=== PATIENT | male | born 1990 | race African-American/Black ===

== ENCOUNTER 2017-04-19 19:37 | Emergency (ER) | payer SELFPAY ==
[2017-04-19] MEDS ORDERED: ACETAMINOPHEN 325 MG TABLET PO ONE (21:15)
[2017-04-19] MEDS ORDERED: PREDNISONE 20 MG TABLET PO ONE (23:15)
[2017-04-19] MEDS ORDERED: BENZONATATE 100 MG CAPSULE PO ONE (23:15)
--- NOTE | 2017-04-19 23:19 | ER Document Report ---
HPI - HPI Patient complains to provider of: cough, congestion Pain Level: 5 Context: Patient is a 27 year old male that comes to the ED for chief complaint of two days of congestion, cough, pain in his chest with cough. No fever or chills. No nausea or vomiting. Patient denies any shortness of breath. Former smoker. No daily medications or medical history reported. Past Medical History - General Information source: Patient - Social History Smoking Status: Former Smoker Frequency of alcohol use: None Drug Abuse: None Lives with: Family Family History: Reviewed & Not Pertinent - Medical History Medical History: Negative Surgical Hx: Negative - Immunizations Immunizations up to date: Yes Hx Diphtheria, Pertussis, Tetanus Vaccination: Yes Vertical Provider Document - CONSTITUTIONAL General Appearance: WD/WN, No Apparent Distress - INFECTION CONTROL TRAVEL OUTSIDE OF THE [place] IN LAST 30 DAYS: No - HEENT HEENT: Atraumatic, Normocephalic. negative: Normal ENT Exam - Congested nasal passages, mildly swollen turbinates, nontender sinuses, minimal erythema of the pharynx, normal oral and ENT exam otherwise - NECK Neck: Normal Inspection - RESPIRATORY Respiratory: Breath Sounds Normal, No Respiratory Distress. negative: Rales, Rhonchi, Wheezing O2 Sat by Pulse Oximetry: 96 - CARDIOVASCULAR Cardiovascular: Regular Rate, Regular Rhythm - GI/ABDOMEN Gastrointestinal: Abdomen Soft, Abdomen Non-Tender - MUSCULOSKELETAL/EXTREMETIES Musculoskeletal/Extremeties: MAEW, FROM, Non-Tender - NEURO Level of Consciousness: Awake, Alert, Appropriate - DERM Integumentary: Warm, Dry, No Rash Course - Re-evaluation Re-evalutation: Patient alert, well-appearing, no hypoxia, clear lung auscultation. No signs of distress. Occasionally will have a nonproductive cough, he does have some sinus congestion. No fever. Low suspicion of pneumonia, very low suspicion of acute emergent process such as pneumothorax. Presentation consistent with viral upper respiratory infection. Discussed this with patient. Patient will be treated for this, discussed follow-up, return precautions in detail. Patient and mother state understanding and agreement. - Vital Signs Vital signs: Temp Pulse Resp BP Pulse Ox 98.5 F 81 20 156/78 H 96 04/19/17 19:46 04/19/17 19:46 04/19/17 19:46 04/19/17 19:46 04/19/17 19:46 Discharge - Discharge Clinical Impression: Cough Upper respiratory infection Qualifiers: URI type: unspecified URI Qualified Code(s): J06.9 - Acute upper respiratory infection, unspecified Condition: Stable Disposition: HOME, SELF-CARE Additional Instructions: Symptoms and physical exam and are most consistent with viral upper respiratory infection. Probable early bronchitis. Take prednisone as prescribed, take Tessalon for cough, drink plenty of fluids, you can use [id number]-[id number] medications such as decongestants and antihistamines if needed. Follow-up with primary care. Return for any concerning symptoms including difficulty breathing , fever of 100.4 greater, or any other concerning symptoms. Prescriptions: Benzonatate [Tessalon Perle 100 mg Capsule] 100 mg PO Q8HP PRN #20 cap PRN Reason: Prednisone [Deltasone 10 mg Tablet] 10 mg PO ASDIR PRN #21 tablet PRN Reason: Forms: Parent Work Note, Elevated Blood Pressure
[2017-04-19 23:33] VITALS: BP 136/87
--- NOTE | 2017-04-19 23:33 | EKG REPORT ---
SEVERITY:- OTHERWISE NORMAL ECG - SINUS RHYTHM BORDERLINE RIGHT AXIS DEVIATION : Confirmed by: Ángel Farah 19-Apr-2017 23:32:40
== END 2017-04-19 23:26 | disposition home or self-care (01) ==
LOC: ER 19:37
DX: J06.9 Acute upper respiratory infection, unspecified (principal)
CPT/HCPCS: 93005; 99283; 93010; J7512

== ENCOUNTER 2018-04-11 15:29 | Emergency (ER) | payer MEDICAID, OTHER ==
[2018-04-11 16:03] VITALS: BP 110/78
--- NOTE | 2018-04-11 16:41 | RADIOLOGY REPORT (SQ) ---
EXAM DESCRIPTION: FINGER LEFT COMPLETED DATE/TIME: 04/11/2018 4:33 pm REASON FOR STUDY: left second digit pain tip of the index finger numb, no history of trauma COMPARISON: None. NUMBER OF VIEWS: Three views. TECHNIQUE: AP, lateral, and oblique images acquired of the left second finger. LIMITATIONS: None. FINDINGS: MINERALIZATION: Normal. BONES: No acute fracture or dislocation. No worrisome bone lesions. SOFT TISSUES: No soft tissue swelling. No foreign body. OTHER: No other significant finding. IMPRESSION: NO PLAIN FILM FINDINGS TO EXPLAIN HISTORY OF PAIN OR NUMBNESS, LEFT 2ND FINGER. TECHNICAL DOCUMENTATION: JOB ID: [id number] [employer]- All Rights Reserved Reading location - IP/workstation name: [email or web address]
--- NOTE | 2018-04-11 17:05 | ER Document Report ---
HPI - HPI Time Seen by Provider: 04/11/18 15:49 Pain Level: 2 Notes: Patient is an otherwise healthy 28-year-old male who presents with chief complaint of left index finger numbness and tingling. He reports that this is intermittent and has been going on for the last 2 days. He denies any injury to the area. 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 He denies any pain. - CONSTITUTIONAL Constitutional: DENIES: Fever, Chills - MUSCULOSKELETAL Musculoskeletal: REPORTS: Extremity pain - left thumb Past Medical History - General Information source: Patient - Social History Smoking Status: Current Every Day Smoker Chew tobacco use (# tins/day): No Frequency of alcohol use: None Drug Abuse: None Family History: Reviewed & Not Pertinent Patient has suicidal ideation: No Patient has homicidal ideation: No - Medical History Medical History: Negative Renal/ Medical History: Denies: Hx Peritoneal Dialysis Past Surgical History: Reports: Hx Orthopedic Surgery - rt index finger - Immunizations Immunizations up to date: Yes Hx Diphtheria, Pertussis, Tetanus Vaccination: Yes Vertical Provider Document - CONSTITUTIONAL Notes: PHYSICAL EXAMINATION: GENERAL: Well-appearing, well-nourished and in no acute distress. HEAD: Atraumatic, normocephalic. EYES: Pupils equal round extraocular movements intact, conjunctiva are normal. ENT: Nares patent NECK: Normal range of motion LUNGS: No respiratory distress Musculoskeletal: Normal range of motion to left hand and all digits. Cap refill less than 3 seconds to all digits, normal motor. Altered sensation to left index finger, no deformity noted. NEUROLOGICAL: Normal speech, normal gait. PSYCH: Normal mood, normal affect. SKIN: Warm, Dry, normal turgor, no rashes or lesions noted. - INFECTION CONTROL TRAVEL OUTSIDE OF THE [place] IN LAST 30 DAYS: No Course - Re-evaluation Re-evalutation: X-rays negative for any acute fracture or dislocation. Patient instructed to try resting his extremity and take NSAIDs. - Vital Signs Vital signs: Temp Pulse Resp BP Pulse Ox 98.9 F 71 16 148/66 H 96 04/11/18 15:35 04/11/18 15:35 04/11/18 15:35 04/11/18 15:35 04/11/18 15:35 Discharge - Discharge Clinical Impression: Finger numbness Condition: Stable Disposition: HOME, SELF-CARE Additional Instructions: Your x-ray today was normal. Try to rest your finger over the next several days this may help the sensation return to normal. If not improving follow-up with primary care in the next 5-7 days.
== END 2018-04-11 17:31 | disposition home or self-care (01) ==
LOC: ER 15:29
DX: R20.0 Anesthesia of skin (principal); F17.200 Nicotine dependence, unspecified, uncomplicated
CPT/HCPCS: 99283

== ENCOUNTER 2018-09-02 16:51 | Emergency (ER) | payer SELFPAY ==
[2018-09-02] MEDS ORDERED: FLUTICASONE NASAL SPRAY 50 MCG/SPRY 120 SPRAY/16 GM NASL ONE (18:02)
[2018-09-02] MEDS ORDERED: OXYMETAZOLINE HCL 0.05% NASAL SPRAY 15 ML BOTTLE NASL ONE (18:02)
--- NOTE | 2018-09-02 18:07 | ER Document Report ---
HPI - HPI Patient complains to provider of: can't hear out of both ears Time Seen by Provider: 09/02/18 17:45 Pain Level: 4 Context: Healthy 28-year-old male presents emergency department with chief complaint of "cannot hear out of both ears". He said the symptoms have been going on for couple weeks and have not improved. He is tried Mucinex, Sudafed, TheraFlu, and increased his fluids with no resolution. He said that he has to "turn the TV up to 35" and still can hardly hear. He is also complaining of postnasal drip and a stuffy nose. He also has a cough that is not productive. He denies any fevers or chills, dizziness or lightheadedness, ear pain, sinus pressure, sore throat, neck tenderness, shortness of breath or wheezing, chest pain, nausea/vomiting/diarrhea/constipation, abdominal pain, or any other symptoms. Past Medical History - Social History Smoking Status: Current Every Day Smoker Family History: Reviewed & Not Pertinent Renal/ Medical History: Denies: Hx Peritoneal Dialysis Past Surgical History: Reports: Hx Orthopedic Surgery - rt index finger - Immunizations Immunizations up to date: Yes Hx Diphtheria, Pertussis, Tetanus Vaccination: Yes Vertical Provider Document - CONSTITUTIONAL Notes: PHYSICAL EXAMINATION: Reviewed vital signs and charting by RN GENERAL: Alert, interacts well. No acute distress. HEAD: Normocephalic, atraumatic. EYES: Pupils equal and round. Extraocular movements intact. ENT: Oral mucosa moist, tongue midline. No tonsillar erythema or exudate, uvula midline. Bilateral TMs intact, landmarks well visualized, no erythema or bulging, small amount of fluid noted behind the right TM NECK: Full range of motion. Trachea midline. LUNGS: Clear to auscultation bilaterally, no wheezes, rales, or rhonchi. No respiratory distress. HEART: Regular rate and rhythm. No murmur ABDOMEN: soft, non-tender. No distention. Bowel sounds present EXTREMITIES: Moves all 4 extremities spontaneously. No edema, No cyanosis. PSYCH: Normal affect, normal mood. SKIN: Warm, dry, normal turgor. No rashes or lesions noted. - INFECTION CONTROL TRAVEL OUTSIDE OF THE [place] IN LAST 30 DAYS: No Course - Re-evaluation Re-evalutation: 09/02/18 18:06 Patient's symptoms most consistent with a viral syndrome. He is afebrile, lungs are clear, TMs do not show evidence of otitis media, throat is not red swollen or painful. There is no reason for any further testing or imaging at this time. I gave patient a Flonase and Afrin order here in the emergency department. I gave patient instructions and anticipatory guidance. Patient has received strict return precautions and is stable for discharge. Vital signs within no rmal limits. - Vital Signs Vital signs: Temp Pulse Resp BP Pulse Ox 98.2 F 94 18 152/77 H 96 09/02/18 17:09 09/02/18 17:09 09/02/18 17:09 09/02/18 17:09 09/02/18 17:09 Discharge - Discharge Clinical Impression: Head congestion Condition: Good Disposition: HOME, SELF-CARE Additional Instructions: Your symptoms are likely due to a viral infection. The only treatment at this time is supportive care including drinking plenty of fluids, Tylenol 1000 mg every 6 hours and/or ibuprofen 600 mg every 6 hours, as well as Flonase and Afrin which she will be sent home with. Your symptoms will likely last for another 7-10 days. Please return to the emergency department immediately if you become confused, have persistent vomiting, pass out, have severe headache, or have any other symptoms that are worrisome to you. Follow-up with your primary care doctor in the next several days.
[2018-09-02 18:32] VITALS: BP 150/71
== END 2018-09-02 18:31 | disposition home or self-care (01) ==
LOC: ER 16:51
DX: R68.89 Other general symptoms and signs (principal); H91.93 Unspecified hearing loss, bilateral; R05 Cough; F17.200 Nicotine dependence, unspecified, uncomplicated
CPT/HCPCS: 99282; J3490

== ENCOUNTER 2018-09-04 17:10 | Emergency (ER) | payer SELFPAY ==
[2018-09-04 17:40] VITALS: BP 150/76
--- NOTE | 2018-09-04 18:18 | ER Document Report ---
HPI - HPI Patient complains to provider of: URI symptoms Time Seen by Provider: 09/04/18 17:43 Pain Level: 5 Context: Patient is an otherwise healthy 28-year-old male presents to the emergency department for generalized cough, congestion, "popping sensation" in bilateral ears, body aches, subjective fever for the last 7 days. Patient's denying any respiratory distress, chest pain, nausea, vomiting, diarrhea. Patient was to this facility 2 days ago for same. Was sent home on Afrin and Flonase. States he has been using them as prescribed. Patient states he now feels some swelling in front of his right ear which is what prompted his visit to the emergency room. - CONSTITUTIONAL Constitutional: DENIES: Fever, Chills - EENT EENT: REPORTS: Ear Pain. DENIES: Sore Throat, Eye problems - NEURO Neurology: DENIES: Weakness, Vision blurred, Dizzinesss / Vertigo - CARDIOVASCULAR Cardiovascular: DENIES: Chest pain - RESPIRATORY Respiratory: REPORTS: Coughing. DENIES: Trouble Breathing - GASTROINTESTINAL Gastrointestinal: DENIES: Abdominal Pain, Black / Bloody Stools - URINARY Urinary: DENIES: Dysuria, Urgency, Frequency - MUSCULOSKELETAL Musculoskeletal: DENIES: Extremity pain Past Medical History - General Information source: Patient - Social History Smoking Status: Current Every Day Smoker Chew tobacco use (# tins/day): No Frequency of alcohol use: None Drug Abuse: None Family History: Reviewed & Not Pertinent Patient has suicidal ideation: No Patient has homicidal ideation: No Renal/ Medical History: Denies: Hx Peritoneal Dialysis Past Surgical History: Reports: Hx Orthopedic Surgery - rt index finger - Immunizations Immunizations up to date: Yes Hx Diphtheria, Pertussis, Tetanus Vaccination: Yes Vertical Provider Document - CONSTITUTIONAL Agree With Documented VS: Yes Notes: GENERAL: Alert, interacts well. No acute distress. Well-hydrated, nontoxic HEAD: Normocephalic, atraumatic. Bilateral preauricular lymphadenopathy appreciated EYES: Pupils equal, round, and reactive to light. Extraocular movements intact. ENT: Oral mucosa moist, tongue midline. Nares patent, swollen turbinates noted bilaterally, bilateral ear canals within normal limits, TM's intact, nonerythematous, nonbulging bilaterally. Pharynx within normal limits no pa latal petechiae or exudate noted NECK: Full range of motion. Supple. Trachea midline. No lymphadenopathy appreciated LUNGS: Clear to auscultation bilaterally, no wheezes, rales, or rhonchi. No respiratory distress. HEART: Regular rate and rhythm. No murmur ABDOMEN: Soft, non-tender. Non-distended. Bowel sounds present in all 4 quadrants. EXTREMITIES: Moves all 4 extremities spontaneously. No edema, normal radial and dorsalis pedis pulses bilaterally. No cyanosis. BACK: no cervical, thoracic, lumbar midline tenderness. No saddle anesthesia, normal distal neurovascular exam. NEUROLOGICAL: Alert and oriented x3. Normal speech. cranial nerves II through XII grossly intact PSYCH: Normal affect, normal mood. SKIN: Warm, dry, normal turgor. No rashes or lesions noted. - INFECTION CONTROL TRAVEL OUTSIDE OF THE [place] IN LAST 30 DAYS: No Course - Re-evaluation Re-evalutation: 09/04/18 18:16 Patient is otherwise healthy 28-year-old male presents to the emergency department for generalized URI viral symptoms. Patient was seen at this facility 2 days ago for same. Was given close return precautions and told symptoms may last for 7 to 10 days. Patient states he was more concerned because of the swelling in front of his right ear. The swelling is very minimal and does appear to be consistent with preauricular lymphadenopathy. Discussed this at length with patient at bedside. Discussed continued use of prescription medicine and rfjz-kqy-pyulazw analgesics. Patient is afebrile, non-tachycardic, in no respiratory distress, stable for discharge. - Vital Signs Vital signs: Temp Pulse Resp BP Pulse Ox 98.1 F 76 18 150/76 H 97 09/04/18 17:39 09/04/18 17:39 09/04/18 17:39 09/04/18 17:39 09/04/18 17:39 Discharge - Discharge Clinical Impression: Preauricular lymphadenopathy Upper respiratory infection Qualifiers: URI type: unspecified viral URI Qualified Code(s): J06.9 - Acute upper respiratory infection, unspecified Condition: Stable Disposition: HOME, SELF-CARE Instructions: Upper Respiratory Illness ([facility]), Viral Syndrome ([facility]), Lymphadenopathy ([facility]) Additional Instructions: Your symptoms are most likely due to a viral infection it should resolve over th e next 7-14 days. You should take huly-dou-ipeqimo guanfacine per bottle instructions to help thin the mucus. For nasal congestion: I would recommend that you get ltwi-yuc-sglqpef oxymetazoline also known is afrin. Use only per bottle instructions and be sure to never use this for more than 3 days if you can develop severe rebound congestion. You may also use tylenol or ibuprofen as needed for aches and thorat discomfort. Please be sure to drink plenty of fluids and get rest. Return to the emergency department he began having difficulty breathing, chest pain, persistent vomiting, or any other symptoms that are concerning to you.
== END 2018-09-04 18:23 | disposition home or self-care (01) ==
LOC: ER 17:10
DX: J06.9 Acute upper respiratory infection, unspecified (principal); B97.89 Other viral agents as the cause of diseases classified elsewhere; R59.0 Localized enlarged lymph nodes; R05 Cough; H92.09 Otalgia, unspecified ear; F17.200 Nicotine dependence, unspecified, uncomplicated
CPT/HCPCS: 99283

== ENCOUNTER 2018-10-29 01:27 | Emergency (ER) | payer SELFPAY ==
[2018-10-29] MEDS ORDERED: NORMAL SALINE 1000 ML 1,000 ML IV ONE ×2 (02:39)
[2018-10-29] MEDS ORDERED: ONDANSETRON HCL INJ/PF 4 MG/2 ML SDV IV ONE (02:40)
--- NOTE | 2018-10-29 02:42 | ER Document Report ---
ED Substance Abuse / Acc. OD - General Chief Complaint: ETOH Abuse Stated Complaint: ETOH ABUSE Time Seen by Provider: 10/29/18 02:19 Notes: Patient is a 28-year-old male that comes emergency department for chief complaint of alcohol intoxication and vomiting. Patient's states that they were at a concert, patient had not eaten anything all day, patient took multiple shots and then started to become drowsy and vomiting. He has vomited approximately 4 times. She states she was having difficulty getting him up to bring him to the emergency department so she called EMS. She denies any recreational drugs. Patient is very drowsy and has difficulty answering questions but he is arousable. She denies any daily medications or past medical history. TRAVEL OUTSIDE OF THE [place] IN LAST 30 DAYS: No - Related Data Allergies/Adverse Reactions: No Known Allergies Allergy (Verified 09/04/18 17:25) Past Medical History - General Information source: Patient, Relative - Social History Smoking Status: Never Smoker Frequency of alcohol use: Heavy Drug Abuse: None Lives with: Spouse/Significant other Family History: Reviewed & Not Pertinent Patient has suicidal ideation: No Patient has homicidal ideation: No Renal/ Medical History: Denies: Hx Peritoneal Dialysis Past Surgical History: Reports: Hx Orthopedic Surgery - rt index finger - Immunizations Immunizations up to date: Yes Hx Diphtheria, Pertussis, Tetanus Vaccination: Yes Review of Systems - Review of Systems Constitutional: See HPI EENT: No symptoms reported Cardiovascular: No symptoms reported Respiratory: No symptoms reported Gastrointestinal: See HPI Genitourinary: No symptoms reported Male Genitourinary: No symptoms reported Musculoskeletal: No symptoms reported Skin: No symptoms reported Hematologic/Lymphatic: No symptoms reported Neurological/Psychological: See HPI Physical Exam - Vital signs Vitals: Temp Pulse Resp BP Pulse Ox 97.9 F 89 16 105/60 96 10/29/18 01:56 10/29/18 01:56 10/29/18 01:56 10/29/18 01:56 10/29/18 01:56 - Notes Notes: GENERAL: Sleeping and difficult to arouse HEAD: Normocephalic, atraumatic. EYES: Pupils equal, round, and reactive to light. Extraocular movements intact. ENT: Oral mucosa moist, tongue midline. Oropharynx unremarkable. Airway patent. LUNGS: Clear to auscultation bilaterally, no wheezes, rales, or rhonchi. No respiratory distress. HEART: Regular rate and rhythm. No murmur ABDOMEN: Soft, non-tender. Non-distended. GENITOURINARY: Deferred EXTREMITIES: Moves all 4 extremities spontaneously. No edema, normal radial and dorsalis pedis pulses bilaterally. No cyanosis. BACK: no cervical, thoracic, lumbar midline tenderness. NEUROLOGICAL: Sleeping, slightly difficult to arouse. GCS of 9. Slurred speech, confused. PSYCH: Normal affect, normal mood. SKIN: Warm, dry, normal turgor. No rashes or lesions noted. Course - Re-evaluation Re-evalutation: Patient initially drowsy, intoxicated, difficult to arouse. GCS is still 9. He is difficult to understand and has difficulty answering questions. BMP is unremarkable. Patient was given 2 boluses of IV fluids, Zofran. On reevaluation patient is significantly improved, much more alert, answers questi ons appropriately. He is able to ambulate without difficulty. is asking to take him home. Patient is clinically sober now, has no traumatic findings, he has no current complaints other than being tired. Discussed recommendations and return precautions. Stable time of discharge. - Vital Signs Vital signs: Temp Pulse Resp BP Pulse Ox 97.4 F 75 16 133/85 H 97 10/29/18 04:41 10/29/18 04:41 10/29/18 04:41 10/29/18 04:41 10/29/18 04:41 - Laboratory Result Diagrams: 10/29/18 01:33 Discharge - Discharge Clinical Impression: Alcohol intoxication Qualifiers: Complication of substance-induced condition: with unspecified complication Qualified Code(s): F10.929 - Alcohol use, unspecified with intoxication, unspecified Vomiting Qualifiers: Vomiting type: unspecified Vomiting Intractability: non-intractable Nausea presence: with nausea Qualified Code(s): R11.2 - Nausea with vomiting, unspecified Condition: Stable Disposition: HOME, SELF-CARE Additional Instructions: Avoid drinking alcohol to intoxication. I recommend the famotidine during your recovery today, start with bland food, take the Zofran if needed for nausea. Continue to hydrate. Follow-up with primary care. Return to the emergency department if you worsen including return vomiting, vomiting blood, abdominal pain, or any other concerning or worsening symptoms. Prescriptions: Famotidine [Pepcid 20 mg Tablet] 20 mg PO BID #12 tablet Ondansetron [Zofran Odt 4 mg Tablet] 1 - 2 tab PO Q4H PRN #15 tab.rapdis PRN Reason: For Nausea/Vomiting Forms: Treatment of Relative/Child
[2018-10-29 03:01] LABS: ANION GAP 12 (5-19); BLOOD UREA NITROGEN 14 mg/dL (7-20); CALCIUM 9.4 mg/dL (8.4-10.2); CARBON DIOXIDE 27 mmol/L (22-30); CHLORIDE 103 mmol/L (98-107); GLUCOSE 99 mg/dL (75-110); POTASSIUM 3.8 mmol/L (3.6-5.0)
[2018-10-29] MEDS ORDERED: ONDANSETRON ODT 4 MG TAB (6 TAB/ER DISP) PO PRN (04:25)
[2018-10-29 04:43] VITALS: BP 133/85
== END 2018-10-29 04:42 | disposition home or self-care (01) ==
LOC: ER 01:27
DX: F10.929 Alcohol use, unspecified with intoxication, unspecified (principal); R11.2 Nausea with vomiting, unspecified
CPT/HCPCS: 99284; 96361; 96374; 36415; 80048; J2405; J7030